=== PATIENT | female | born 1965 | race Two or more races ===

== ENCOUNTER 2025-08-02 13:22 | Emergency (ER) | payer OTHER ==
[~2025-08-02] VITALS: Ht 166.4 cm; Wt 44.5 kg
[~2025-08-02 13:22] MED LIST: TYLENOL-CODEINE1 TAB PO
[2025-08-02] MEDS ORDERED: DULOXETINE HCL40 MG (13:59)
[2025-08-02] MEDS ORDERED: ATIVAN0.5 M1 PO (14:00)
[2025-08-02] MEDS ORDERED: TEMAZEPAM15 MG PO (14:00)
[2025-08-02] MEDS ORDERED: ONDANSETRON HCL 2 MG/ML VIAL IV ONE (15:00)
[2025-08-02] MEDS ORDERED: FAMOTIDINE/PF 20 MG/2 ML VIAL IV ONE (15:00)
[2025-08-02] MEDS ORDERED: 0.9 % SODIUM CHLORIDE 500 ML IV ONE (15:00)
[2025-08-02 16:52] LABS: BASO % 0.5 % (0.1-1.2); EOS # 0.02 (0.04-0.54); EOS % 0.3 % (0.7-7.0); LYMPH # 0.86 (1.18-3.74); LYMPH % 15.0 % (19.3-53.1); MEAN PLATELET VOLUME 10.10 fl (9.4-12.4); MONO # 0.46 (0.24-0.82); MONO % 8.0 % (4.7-12.5); NEUT # 4.37 (1.56-6.13); NEUT % 76.0 % (34.0-71.1); RED CELL DISTRIBUTION WIDTH 12.5 % (11.6-14.4)
[2025-08-02 17:20] LABS: INR 1.09
[2025-08-02 17:25] LABS: ALT/SGPT 22.0 U/L (12-78); AST/SGOT 12.0 U/L (15-37); BILIRUBIN TOTAL 0.52 mg/dL (0.3-1.2); BUN CREA RATIO 24.0 (7.0-25.0); CREATININE SERUM 0.55 mg/dL (0.55-1.02); GFR 112.37; GLOBULINA 3.5 G/DL (2.4-3.5); GLUCOSE FASTING 101.0 mg/dL (65-100); OSMOLALITY SERUM 267.0 MOSM/KG (275-295); PHOSPHOKINASE CREATININE 39.0 U/L (26-192)
[2025-08-02 17:34] LABS: URINE APPEARANCE Clear; URINE BILIRRUBIN Negative (NEGATIVE); URINE BLOOD Negative; URINE COLOR Yellow; URINE GLUCOSE Negative (NEGATIVE); URINE LEUKOCYTE Negative; URINE NITRATE Negative; URINE PROTEIN Negative (NEGATIVE); URINE UROBILINOGEN 0.2 E.U./dl
[2025-08-02 17:39] LABS: URINE BACTERIA 21.5 uL (0.0-1933); URINE EPITHELIAL CELLS 3.0 uL (0.0-38.8); URINE RBC 10.1 uL (0.0-20.8); URINE WBC 6.1 uL (0.0-23.2)
[2025-08-02 17:57] LABS: URINE CAST 0.14 uL (0.0-1.40); URINE KETONE 40 (NEGATIVE)
[2025-08-02 17:59] LABS: COCAINE NEGATIVE (NEGATIVE); METHADONE NEGATIVE (NEGATIVE); OPIATES NEGATIVE (NEGATIVE); THC ( Cannabinoids) NEGATIVE (NEGATIVE)
[2025-08-02] MEDS ORDERED: APETIGEN L790 MG/15 PO (21:21)
[2025-08-02] MEDS ORDERED: ONDANSETRON ODT4 MG PO (21:21)
[2025-08-02] MEDS ORDERED: PEPCID AC20 MG PO (21:21)
== END 2025-08-02 22:00 ==
LOC: ER 13:23
PROVIDERS: General Practice
DX: R10.32 Left lower quadrant pain (principal); R10.12 Left upper quadrant pain; F41.8 Other specified anxiety disorders; R63.4 Abnormal weight loss; R53.83 Other fatigue
CPT/HCPCS: 36415; 72100; 74177; 96365; 96366; 99284; J2405; J3490; J7042; Q9965